=== PATIENT | male | born 1970 ===

== ENCOUNTER 2022-02-19 07:43 | Emergency (ER) | payer OTHER ==
[~2022-02-19] VITALS: Ht 172.7 cm; Wt 122.5 kg
[~2022-02-19 07:43] MED LIST: CEPH500 PO; Norco 5-325 Ta1 EACH PO
[2022-02-19] MEDS ORDERED: Amoxicillin500 MG PO (08:15)
== END 2022-02-19 08:23 | disposition home or self-care (01) ==
LOC: ER 07:43
DX: K04.7 Periapical abscess without sinus (principal); Z87.891 Personal history of nicotine dependence
CPT/HCPCS: 99282